=== PATIENT | male | born 1950 | race Caucasian/White ===

== ENCOUNTER 2017-06-22 12:39 | Outpatient (CLI) | payer BC ==
--- NOTE | 2017-06-22 14:22 | RAD ---
PA AND LATERAL OF THE CHEST: INDICATION: Chest pain. COMPARISON: None. FINDINGS: The lungs are clear. Cardiomediastinal silhouette is normal. There is mild spondylosis of the thora cic spine. No acute osseous abnormality is evident. IMPRESSION: No acute cardiopulmonary abnormality. POS: [facility]
== END 2017-06-22 12:40 | disposition home or self-care (01) ==
LOC: RAD 12:39
PROVIDERS: ATTEND Internal Medicine
DX: R06.02 Shortness of breath (principal)
CPT/HCPCS: 71020

== ENCOUNTER 2017-06-28 08:56 | Outpatient (CLI) | payer BC ==
[2017-06-28] MEDS ORDERED: Iopamidol 370 76% 100 ML VIAL ONE (09:38)
--- NOTE | 2017-06-28 12:18 | CT ---
CT PULMONARY ANGIOGRAM WITH IV CONTRAST AND 3D POST PROCESSING: HISTORY: Shortness of breath. Chest pain. The patient had back fusion surgery performed on 05/23/2017. FINDINGS: There is good contrast opacification in the pulmonary arterial vasculature without filling defects to suggest pulmonary embolism. The thoracic aorta demonstrates no evidence of aneurysmal dissection. No pleural or pericardial effusions are seen. No pneumothoraces, liver consolidation, or pulmonary m ass is identified. There are mild dependent changes in the lung bases posteriorly. There are degene rative changes in the spine. IMPRESSION: No CT evidence of pulmonary embolism. POS: [facility]
== END 2017-06-28 08:57 | disposition home or self-care (01) ==
LOC: CT 08:56
PROVIDERS: ATTEND Internal Medicine
DX: R07.9 Chest pain, unspecified (principal)
CPT/HCPCS: 71275

== ENCOUNTER 2018-03-19 12:49 | Outpatient (CLI) | payer BC ==
[2018-03-19 13:04] LABS: #Eosinphils 0.1 thou/uL (0.0-0.7); #Lymphocytes 1.3 thou/uL (1.20-3.40); #Monocytes 0.4 thou/uL (0.11-0.59); #Neutrophils 2.3 thou/uL (1.40-6.50); %Basophils 0.7 % (0.0-1.0); %Eosinophils 2.3 % (0.0-10.0); %Lymphocytes 31.6 % (21.0-51.0); %Monocytes 8.7 % (0.0-10.0); %Neutrophils 56.7 % (42.0-75.0); Hemoglobin 14.4 g/dL (14.0-18.0); Mean Corpuscular HGB CONC 34.1 g/dL (32.0-36.0); Mean Corpuscular Hemoglobin 30.4 pg (27.0-31.0); Mean Corpuscular Volume 89.3 fL (78.0-98.0); Mean Platelet Volume 6.9 fL (7.4-10.4); Platelet Count 231 thou/uL (130-400); Red Blood Cell (RBC) Count 4.75 mill/uL (4.70-6.10); White Blood Cell (WBC) Count 4.1 thou/uL (4.8-10.8)
[2018-03-19 13:26] LABS: Anion Gap 11 mmol/L (10-20); BUN (Urea Nitrogen) 12 mg/dL (8.4-25.7); Calc. Creatinine Clearance 0 mL/min (70-130); Calcium 9.5 mg/dL (7.8-10.44); Carbon Dioxide 29 mmol/L (23-31); Chloride 103 mmol/L (98-107); Estimated GFR-MDRD Greater than 90; Glucose 114 mg/dL (80-115); Potassium 4.3 mmol/L (3.5-5.1); Sodium 139 mmol/L (136-145)
--- NOTE | 2018-03-19 16:05 | EKG ---
Test Reason : Blood Pressure : / mmHG Vent. Rate : 070 BPM Atrial Rate : 070 BPM P-R Int : 188 ms QRS Dur : 104 ms QT Int : 408 ms P-R-T Axes : 057 063 048 degrees QTc Int : 440 ms Normal sinus rhythm Incomplete right bundle branch block Abnormal ECG Confirmed by VAL POE ([id number]) on 03/19/2018 4:05:08 PM Referred By: LEYLA Confirmed By:VAL POE
== END 2018-03-19 12:50 | disposition home or self-care (01) ==
LOC: LABBT 12:49
PROVIDERS: ATTEND Surgery
DX: Z01.818 Encounter for other preprocedural examination (principal); M79.89 Other specified soft tissue disorders
CPT/HCPCS: 93005; 93010

== ENCOUNTER 2018-03-22 06:03 | Day surgery (SDC) | payer BC ==
[2018-03-19 12:59] VITALS: BMI 22.9
[2018-03-22] MEDS ORDERED: CEFAZOLIN/Water 2 GM/20 ML SYRINGE ONE (07:04)
[2018-03-22] MEDS ORDERED: Bacitracin Zinc Ointment 30 gm TUBE ONE (07:23)
[2018-03-22] MEDS ORDERED: Lidocaine 1% w/Epinephrine 1:100K 30 ML VIAL ONE (07:23)
[2018-03-22] MEDS ORDERED: Bupivacaine HCl 0.5%/Epinephrine 1:200,000/PF 30 ml Vial ONE (07:23)
[2018-03-22] MEDS ORDERED: Fentanyl 100 MCG/2 ML VIAL ONE ×2 (07:32→09:12)
[2018-03-22] MEDS ORDERED: Lidocaine 2% PF Inj 2 ML VIAL ONE (08:01)
[2018-03-22] MEDS ORDERED: HYDROcodone/Acetaminophen 5/325 mg Tablet ONE (10:14)
--- NOTE | 2018-03-22 11:23 | OP ---
DATE OF PROCEDURE: 03/22/2018 PREOPERATIVE DIAGNOSES: 1. Multiple soft tissue mass, abdomen, left arm, right posterior leg. 2. Dysplastic skin lesion, left lower extremity, right lower extremity, right flank. PROCEDURES: 1. Excision of multiple soft tissue masses, excision of dysplastic skin lesion x3. 2. Soft tissue masses, total diameter 10 cm. 3. Total diameter of excised benign lesions is 3 cm. SURGEON: Ron Bella M.D. ANESTHESIA: General. ESTIMATED BLOOD LOSS: Minimal. COMPLICATIONS: None. SPECIMEN: As above. TECHNIQUE: The patient was taken to the operating room and placed supine on the table. After genera l anesthetic was obtained, his abdomen and left arm was prepped and draped in a sterile fashion. Str aight incision was made over each palpable abnormalities, they were all removed, they were all appear ed to be lipomas. They are sent to path in groups for final diagnosis. Incision is made in the left arm over the palpable abnormality as well. All incisions are irrigated and closed using 4-0 Monocry l and Dermabond. Left lateral lower extremity 1 cm skin lesion, excised, the wound is irrigated and closed using 4-0 Monocryl and Dermabond. Next, the patient was placed in left lateral decubitus posi tion. The dysplastic skin lesions to the right lower extremity and right flank are excised and close d using 4-0 Monocryl. The soft tissue mass to the right posterior thigh is excised and sent to path for final diagnosis. All incisions are closed using 4-0 Monocryl and Dermabond. The patient went to recovery in stable condition. All instrument counts, needle counts, lap counts are correct.
[2018-03-22] MEDS ORDERED: ePHEDrine/0.9% NaCl/PF SYRINGE 50 mg/10 ml ONE (14:53)
[2018-03-22] MEDS ORDERED: Dexamethasone 20 MG/5 ML VIAL ONE (14:53)
[2018-03-22] MEDS ORDERED: Ketorolac Tromethamine 30 MG/ML VIAL ONE (14:53)
[2018-03-22] MEDS ORDERED: PROPOFOL 200 MG/20 ML VIAL ONE (14:53)
[2018-03-22] MEDS ORDERED: PHENYLEPHRINE-NS 100 MCG/ML 10 ML SYRINGE ONE (14:53)
[2018-03-22] MEDS ORDERED: Ondansetron HCl/PF 4 MG/2 ML Vial ONE (14:53)
--- NOTE | 2018-03-27 09:03 | PQF ---
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 Check the appropriate box and include in your discharge summary. [ ] [ ] [ ] [ ] Please check this box if this does not apply to this patient [ ] Unable to determine [ ] Other diagnosis: Review the following information and exercise your independent professional judgment in responding to the clarification. Based upon the clinical findings, risk factors, and treatment, please clarify if you are treating one of the above probable or suspected diagnoses. Physician Signature: Date Time MTDD
== END 2018-03-22 10:45 | disposition home or self-care (01) ==
LOC: SDC 06:03
PROVIDERS: ATTEND Surgery
PROC: 0HBKXZZ Excision of Right Lower Leg Skin, External Approach (ICD-10-PCS; principal; 2018-03-22)
PROC: 0JBF0ZZ Excision of Left Upper Arm Subcutaneous Tissue and Fascia, Open Approach (ICD-10-PCS; principal; 2018-03-22)
PROC: 0HBHXZZ Excision of Right Upper Leg Skin, External Approach (ICD-10-PCS; principal; 2018-03-22)
PROC: 0JBL0ZZ Excision of Right Upper Leg Subcutaneous Tissue and Fascia, Open Approach (ICD-10-PCS; principal; 2018-03-22)
PROC: 0JB80ZZ Excision of Abdomen Subcutaneous Tissue and Fascia, Open Approach (ICD-10-PCS; principal; 2018-03-22)
DX: C44.722 Squamous cell carcinoma of skin of right lower limb, including hip (principal); D17.1 Benign lipomatous neoplasm of skin and subcutaneous tissue of trunk; D17.22 Benign lipomatous neoplasm of skin and subcutaneous tissue of left arm; D17.23 Benign lipomatous neoplasm of skin and subcutaneous tissue of right leg; E78.00 Pure hypercholesterolemia, unspecified; I10 Essential (primary) hypertension; K21.9 Gastro-esophageal reflux disease without esophagitis; Z79.82 Long term (current) use of aspirin; Z79.899 Other long term (current) drug therapy; Z88.5 Allergy status to narcotic agent; Z88.8 Allergy status to other drugs, medicaments and biological substances
CPT/HCPCS: 88304; 88305; 96374; J0670; J1100; J1885; J2001; J2405; J2704; J3010; J3490

== ENCOUNTER 2019-09-18 09:39 | Outpatient (CLI) | payer BC, MEDICARE ==
--- NOTE | 2019-09-18 10:55 | MRI ---
MRI LOWER EXTREMITY JOINT LEFT WITHOUT CONTRAST: History: Knee pain. Comparison: None. Findings: Medial meniscus: Displaced flap tear body and posterior horn medial meniscus with the tissue flipped on the posterior intercondylar notch. Tear does involve the root attachment. No significant medial gutter extrusion. Lateral meniscus: Intact. The ACL, PCL, MCL, and LCL are all intact. Extensor mechanism: Quadriceps tendon, patella, and patellar tendon are intact. Cartilage: Patellofemoral compartment: A few high-grade chondral fissures of the medial patellar facet with kashif y subcortical reactive marrow change. A majority of the adjacent patellofemoral cartilage is intact. Medial compartment: No full-thickness defect. Minimal chondral fraying. Lateral compartment: Intact. Soft tissues: Small popliteus bursa effusion. No significant popliteal cyst. Moderate joint effusion. Bones: No fracture. No malalignment. Low-grade stress edema posterior medial tibial rim. Impression: 1. Displaced undersurface flap tear medial meniscus body and posterior horn flipped posteriorly along the posterior intercondylar notch best seen on sagittal image 13 series 7. There is minimal stress edema of the posterior medial tibial plateau with low-grade fraying without full-thickness cartilage defect. 2. A few grade IV cartilage fissures of the medial patellar facet; otherwise, intact cartilage. 3. scarred proximal fibers medial collateral ligament suggesting an old injury. Transcribed Date/Time: 09/18/2019 11:05 AM
== END 2019-09-18 09:40 | disposition home or self-care (01) ==
LOC: SCSMRI 09:39
PROVIDERS: ATTEND Orthopaedic Surgery
DX: M25.562 Pain in left knee (principal); S83.242A Other tear of medial meniscus, current injury, left knee, initial encounter; R60.0 Localized edema